=== PATIENT | female | born 1955 | race Caucasian/White ===

== ENCOUNTER → 2017-03-13 | Outpatient (CLI) | payer OTHER ==
[~2017-03-13] MED LIST: CELE200C PO; DIPH25CA58 PO; ESTR1PAT42 TD; FENO134C PO; FENO145T PO; IOHEXOL 300 MG/ML 100ML VIAL. IV ONE; LANS30CA66 PO; LEVO88TA2 PO; PHEN105C PO; PHEN37.53 PO; POTASSIUM CHLO10 MEQ PO; TRIA1CAP3 PO
--- NOTE | 2017-03-13 15:07 | KCIC ---
PQRS STATEMENT: One or more of the following in the visualized dose reduction techniques were utilized for this study: 1. Automatic exposure control, 2. Adjustment of the mA and/or kV according to patient size, 3. Use of iterative reconstruction technique CT NECK WITH CONTRAST Indication: Right neck mass TECHNIQUE: Multiple contiguous axial images were obtained through the neck after intravenous administration of iodinated contrast. Coronal and sagittal reformations were created. FINDINGS: There is a hypodense solid-appearing mass in the right paravertebral soft tissue that measures approximately 1.6 by a 0.6 x 2.0 cm. This is seen at the level of the C5-C6 disc space. There is a possible tail that extends into the right C5-C6 foramen. There is no obvious widening of the foramen. No other masses are identified. Visualized intracranial contents show no acute abnormality. Globes and orbits appear unremarkable. There is sinuses and mastoid air cells are clear. Parotid glands, submandibular glands, and thyroid are normal. No displacement of parapharyngeal fat. [employer] spaces are unremarkable. Streak artifact limits detail of the oral cavity but no obvious mass is identified. Lung apices are clear. IMPRESSION: There is a 2 cm mass in the right paraspinal soft tissues at the level of the C-6 disc space. There is a possible tail that extends toward the neural foramen. This would be better delineated by MRI without and with contrast. There is no cervical adenopathy. No other masses are identified. Electronically signed by: Blayne Lambert MD (03/13/2017 3:04 PM) [id number]
== END | disposition home or self-care (01) ==
LOC: KCIC CT 13:20
PROVIDERS: ATTEND Nurse Practitioner Adult Health
DX: R22.1 Localized swelling, mass and lump, neck (principal)
CPT/HCPCS: 70491; Q9967

== ENCOUNTER → 2017-03-23 | Outpatient (CLI) | payer OTHER ==
[~2017-03-23] MED LIST changes: +GADOBUTROL 7.5 MMOL/7.5 ML VIAL IV ONE; -IOHEXOL 300 MG/ML 100ML VIAL. IV ONE
--- NOTE | 2017-03-23 15:12 | KCIC ---
INDICATION: Palpable abnormality. Abnormal CT. TECHNIQUE: MRI neck with and without contrast was performed, 7 mL of intravenous Gadavist administered. Axial T1, axial STIR, axial T2 gradient, axial fat-suppressed postcontrast, coronal T1 fat-suppressed, coronal STIR, coronal fat-suppressed postcontrast, sagittal T1, and sagittal fat-suppressed postcontrast sequences are provided. Comparison is a CT from 10 days ago. FINDINGS: Lesion noted on the right on CT is T1 hypointense and STIR hyperintense, with irregular peripheral enhancement. Questionable tail extending towards the C5-C6 neural foramen is noted. Lesion is unchanged in size. No additional lesion is identified. Additional subcentimeter lymph nodes are noted bilaterally. There is no fluid collection. There is no edema or signal abnormality within the paravertebral muscles. IMPRESSION: 2.0 cm mass at the area of concern on CT is T2 and STIR hyperintense and demonstrates irregular peripheral enhancement. There is a questionable tail extending towards the C5-C6 neural foramen. 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 Necrotic adenopathy cannot be excluded. Electronically signed by: Jay Smalls MD (03/23/2017 3:09 PM) [id number]
== END | disposition home or self-care (01) ==
LOC: KCIC MRI 13:51
PROVIDERS: ATTEND Nurse Practitioner Adult Health
DX: M79.9 Soft tissue disorder, unspecified (principal)
CPT/HCPCS: 70543; A9585